=== PATIENT | female | born 1955 | race Caucasian/White ===

== ENCOUNTER 2016-07-09 03:16 | Emergency (ER) | payer SELFPAY ==
[~2016-07-09] VITALS: Ht 170.2 cm; Wt 68.0 kg
[2016-07-09 03:45] VITALS: BP 136/74
[2016-07-09] MEDS ORDERED: HYDROcodone-ACET 10/325MG TAB PO ONE (04:30)
[2016-07-09] MEDS ORDERED: KETOROLAC TROMETH 60MG/2ML VIAL IM ONE (04:30)
== END 2016-07-09 04:38 | disposition home or self-care (01) ==
LOC: ER 03:21
DX: S80.12XA Contusion of left lower leg, initial encounter (principal); R07.89 Other chest pain; Z88.1 Allergy status to other antibiotic agents; Z88.8 Allergy status to other drugs, medicaments and biological substances; V43.52XA Car driver injured in collision with other type car in traffic accident, initial encounter; Y93.89 Activity, other specified; Y99.8 Other external cause status; Y92.89 Other specified places as the place of occurrence of the external cause
CPT/HCPCS: 93005; 96372; 99283; J1885